=== PATIENT | male | born 1955 | race Caucasian/White ===

== ENCOUNTER 2018-02-13 05:46 | Observation (INO) | payer OTHER ==
[~2018-02-13] VITALS: Ht 160 cm; Wt 51.8 kg
[~2018-02-13 05:46] MED LIST: ALBU90OI INH; BEVESPI AEROS10.7 GM INH; BUDE.25 NEB; Brovana15 MCG/2 M INH; CARV6.25 PO; DIGOX250 MCG PO; FURO40 PO; Ipratropium Bro15 ML; LEVSOD75 PO; MECL12.5 PO; PYRI60 PO; SERT100 PO; WARF2 PO
[2018-02-13 06:34] LABS: BASOPHILS ABSOLUTE AUTO 0.06 K/mm3 (0.00-0.23); BASOPHILS PERCENT AUTO 1 % (0-2); EOSINOPHILS ABSOLUTE AUTO 0.18 K/mm3 (0.00-0.68); EOSINOPHILS PERCENT AUTO 2 % (0-6); Hematocrit 42.4 % (37.0-53.0); Hemoglobin 13.5 g/dL (13.5-17.5); IMMATURE GRAN ABSOLUTE AUTO 0.01 K/mm3 (0.00-0.10); IMMATURE GRAN PERCENT AUTO 0 % (0-1); LYMPHOCYTES ABSOLUTE AUTO 1.27 K/mm3 (0.84-5.20); LYMPHOCYTES PERCENT AUTO 17 % (21-46); MONOCYTES ABSOLUTE AUTO 0.59 K/mm3 (0.16-1.47); MONOCYTES PERCENT AUTO 8 % (4-13); Mean Corpuscular HGB 26.8 pg (26.0-34.0); Mean Corpuscular HGB Conc 31.8 g/dL (31.5-36.5); Mean Corpuscular Volume 84 fL (80-100); Mean Platelet Volume 9.4 fL (9.1-12.4); NEUTROPHILS ABSOLUTE AUTO 5.35 K/mm3 (1.96-9.15); NEUTROPHILS PERCENT AUTO 72 % (41-73); Platelet Count 226 K/mm3 (150-400); RDW Coefficient Variation 15.9 % (11.7-14.2); RDW Standard Deviation 48.9 fL (35.1-46.3); Red Blood Cell Count 5.03 M/mm3 (4.30-5.90); White Blood Cell Count 7.46 K/mm3 (4.00-11.30)
[2018-02-13 06:41] LABS: Bun/Creatinine Ratio 18.4 (12.0-20.0); Calcium, Blood 8.2 mg/dL (8.5-10.1); Creatinine, Blood 1.41 mg/dL (0.60-1.20); Potassium, Blood 4.2 mmol/L (3.5-5.5)
[2018-02-13 06:50] LABS: International Normalized Ratio 3.44
[2018-02-13 10:05] LABS: International Normalized Ratio 3.68; Prothrombin Time Results 35.2 Sec (9.7-11.5)
[2018-02-13 10:51] LABS: Digoxin (Lanoxin) 1.12 ug/mL (0.80-2.00)
[2018-02-14 03:47] LABS: Bun/Creatinine Ratio 19.1 (12.0-20.0); Calcium, Blood 8.1 mg/dL (8.5-10.1); Creatinine, Blood 1.41 mg/dL (0.60-1.20); Potassium, Blood 4.7 mmol/L (3.5-5.5)
[2018-02-14] MEDS ORDERED: FURO20 PO (09:09)
[2018-02-14] MEDS ORDERED: Prinivil10 MG PO (09:11)
[2018-02-14] MEDS ORDERED: SPIR25 PO (09:12)
[2018-02-14] MEDS ORDERED: METO25ER PO (09:13)
== END 2018-02-14 12:35 | disposition home or self-care (01) ==
LOC: MHTC 05:46 → PCU 08:33 → MHTC 08:43 → PCU 02-14 12:35
PROVIDERS: Internal Medicine Cardiovascular Disease
DX: I11.0 Hypertensive heart disease with heart failure (principal); I50.9 Heart failure, unspecified; I42.9 Cardiomyopathy, unspecified; Z95.2 Presence of prosthetic heart valve
CPT/HCPCS: 36415; 71046; 80048; 80162; 85025; 85610; 93005; 93010; 93306; 93458; 94640; 94760; 99152; 99153; C1769; C1894; G0378; J1644; J2250; J3010; J3490; J7030; J7605; Q9967

== ENCOUNTER 2022-06-06 15:36 | Inpatient (IN) | payer MEDICARE, OTHER ==
[~2022-06-06] VITALS: Ht 162.6 cm; Wt 55.0 kg
[~2022-06-06 15:36] MED LIST changes: +FURO20 PO; +METO25ER PO; +Prinivil10 MG PO; +SPIR25 PO
[2022-06-06 16:25] LABS: BASOPHILS ABSOLUTE AUTO 0.07 K/mm3 (0.00-0.23); BASOPHILS PERCENT AUTO 1 % (0-2); EOSINOPHILS ABSOLUTE AUTO 0.13 K/mm3 (0.00-0.68); EOSINOPHILS PERCENT AUTO 2 % (0-6); Hematocrit 45.9 % (37.0-53.0); Hemoglobin 14.6 g/dL (13.5-17.5); IMMATURE GRAN ABSOLUTE AUTO 0.02 K/mm3 (0.00-0.10); IMMATURE GRAN PERCENT AUTO 0 % (0-1); LYMPHOCYTES ABSOLUTE AUTO 1.65 K/mm3 (0.84-5.20); LYMPHOCYTES PERCENT AUTO 22 % (21-46); MONOCYTES ABSOLUTE AUTO 0.65 K/mm3 (0.16-1.47); MONOCYTES PERCENT AUTO 9 % (4-13); Mean Corpuscular HGB 26.2 pg (26.0-34.0); Mean Corpuscular HGB Conc 31.8 g/dL (31.5-36.5); Mean Corpuscular Volume 82 fL (80-100); NEUTROPHILS ABSOLUTE AUTO 5.08 K/mm3 (1.96-9.15); NEUTROPHILS PERCENT AUTO 67 % (41-73); Platelet Count 242 K/mm3 (150-400); RDW Coefficient Variation 16.2 % (11.7-14.2); RDW Standard Deviation 47.6 fL (35.1-46.3); Red Blood Cell Count 5.58 M/mm3 (4.30-5.90)
[2022-06-06 16:48] LABS: Albumin, Blood 3.7 g/dL (3.4-5.0); Albumin/Globulin Ratio 1.2 (0.8-1.8); Bilirubin, Total 0.8 mg/dL (0.1-1.0); Bun/Creatinine Ratio 16.8 (12.0-20.0); Calcium, Blood 8.9 mg/dL (8.5-10.1); Creatinine, Blood 1.13 mg/dL (0.60-1.20); Globulin, Blood 3.1 g/dL (2.2-4.0); Potassium, Blood 4.3 mmol/L (3.5-5.5); Total Protein, Blood 6.8 g/dL (6.4-8.2)
[2022-06-06] MEDS ORDERED: FURO40 PO (18:19)
[2022-06-06] MEDS ORDERED: ISOSORBIDE MONO30 MG PO (18:21)
[2022-06-06] MEDS ORDERED: JANTOVEN2.5 M2 PO (18:22)
[2022-06-06 18:44] LABS: International Normalized Ratio 1.76; Prothrombin Time Results 17.8 Sec (9.7-11.5)
[2022-06-06 23:42] LABS: CPK Creatine Kinase 108 U/L (39-308)
--- NOTE | 2022-06-07 05:08 | NUR ---
Patient admitted for CHF, elevated BNP/Troponin. chief complaint SOB. Patient has implanted defibrillator. Gave PM dose of Warfarin. Tele ordered, SR. rv service technician reported several occurences of Vtach, Patient had 23beat of Vtach at 0230, MD ordered Metoprolol Tartate given once gave at 0305, Tele called back and reported 18 beats of Vtach & again at 0345 23beats of Vtach. MD instructed RN to give 0900 Metoprlol Succinate now. Patient is resting comfortably, arouses easily to voice. Denies cardiac symptoms. MD instructed RN to continue to monitor & notfied MD if patient becomes symptomatic.
[2022-06-07 08:14] LABS: BASOPHILS ABSOLUTE AUTO 0.09 K/mm3 (0.00-0.23); BASOPHILS PERCENT AUTO 1 % (0-2); EOSINOPHILS ABSOLUTE AUTO 0.17 K/mm3 (0.00-0.68); EOSINOPHILS PERCENT AUTO 2 % (0-6); Hematocrit 49.3 % (37.0-53.0); Hemoglobin 15.5 g/dL (13.5-17.5); IMMATURE GRAN ABSOLUTE AUTO 0.02 K/mm3 (0.00-0.10); IMMATURE GRAN PERCENT AUTO 0 % (0-1); LYMPHOCYTES ABSOLUTE AUTO 1.99 K/mm3 (0.84-5.20); LYMPHOCYTES PERCENT AUTO 28 % (21-46); MONOCYTES ABSOLUTE AUTO 0.74 K/mm3 (0.16-1.47); MONOCYTES PERCENT AUTO 10 % (4-13); Mean Corpuscular HGB 25.8 pg (26.0-34.0); Mean Corpuscular HGB Conc 31.4 g/dL (31.5-36.5); Mean Corpuscular Volume 82 fL (80-100); Mean Platelet Volume 9.4 fL (9.1-12.4); NEUTROPHILS ABSOLUTE AUTO 4.19 K/mm3 (1.96-9.15); NEUTROPHILS PERCENT AUTO 58 % (41-73); Platelet Count 240 K/mm3 (150-400); RDW Coefficient Variation 16.8 % (11.7-14.2); RDW Standard Deviation 47.8 fL (35.1-46.3)
[2022-06-07 08:29] LABS: International Normalized Ratio 1.8; Prothrombin Time Results 18.2 Sec (9.7-11.5)
[2022-06-07 08:33] LABS: Albumin, Blood 3.4 g/dL (3.4-5.0); Albumin/Globulin Ratio 0.9 (0.8-1.8); Bilirubin, Total 0.8 mg/dL (0.1-1.0); Bun/Creatinine Ratio 17.6 (12.0-20.0); Calcium, Blood 8.5 mg/dL (8.5-10.1); Creatinine, Blood 1.36 mg/dL (0.60-1.20); Globulin, Blood 3.6 g/dL (2.2-4.0); Magnesium, Blood 2.1 mg/dL (1.6-2.4); Potassium, Blood 4.2 mmol/L (3.5-5.5)
[2022-06-07 08:38] LABS: CPK Creatine Kinase 87 U/L (39-308)
--- NOTE | 2022-06-07 16:08 | NUR ---
SHIFT SUMMARY PT SLEEPING AT START OF SHIFT. WOKE EASILY FOR CARE. NO C/O. SR ON TELE, PER MX TECH. PER NOC SHIFT REPORT, PT HAVING SHORT EPISODES OF V-TACH WITH DEFIBULATER SPIKING. PT ASYMPTOMATIC. AM DOSE OF METOPROLOL GIVEN BY NOC SHIFT, WHICH HELPED. ONLY SHORT, INTERMITTENT EPISODES DURING THE DAY NOTED BY TELE MX. PT REMAINED ASYMPTOMATIC. DR MILLER UPDATED ON EVENTS. LABS ORDERED TO CHK ELECTROLYTES. PT USING URINAL AT BS NEEDED. DENIED FURTHER NEEDS. SLEPT OFF AND ON TODAY, WATCHING TV AND TALKING ON PHONE OCCASSIONALLY. CALL LT IN REACH. WILL CONTINUE TO MONITOR.
--- NOTE | 2022-06-08 04:33 | NUR ---
Rn summary: Patient is alert and oriented. Patient is using urinal. Patient lung sounds are diminished throughout. Patient is on RA. He states he still gets some SOB with activity. Tele shows SR with BBB and occ PVC's. CONTROL CLERK SUBASSEMBLY gave pt a bed bath. Plan for Echo today. Call light in reach. Pt has had a good night.
[2022-06-08 05:58] LABS: BASOPHILS PERCENT AUTO 1 % (0-2); EOSINOPHILS ABSOLUTE AUTO 0.18 K/mm3 (0.00-0.68); EOSINOPHILS PERCENT AUTO 2 % (0-6); Hematocrit 49.3 % (37.0-53.0); Hemoglobin 15.8 g/dL (13.5-17.5); IMMATURE GRAN ABSOLUTE AUTO 0.02 K/mm3 (0.00-0.10); IMMATURE GRAN PERCENT AUTO 0 % (0-1); LYMPHOCYTES ABSOLUTE AUTO 2.32 K/mm3 (0.84-5.20); LYMPHOCYTES PERCENT AUTO 28 % (21-46); MONOCYTES ABSOLUTE AUTO 0.83 K/mm3 (0.16-1.47); MONOCYTES PERCENT AUTO 10 % (4-13); Mean Corpuscular HGB 25.9 pg (26.0-34.0); Mean Corpuscular Volume 81 fL (80-100); Mean Platelet Volume 9.5 fL (9.1-12.4); NEUTROPHILS ABSOLUTE AUTO 4.99 K/mm3 (1.96-9.15); NEUTROPHILS PERCENT AUTO 59 % (41-73); Platelet Count 255 K/mm3 (150-400); RDW Coefficient Variation 16.4 % (11.7-14.2); RDW Standard Deviation 46.7 fL (35.1-46.3); Red Blood Cell Count 6.09 M/mm3 (4.30-5.90); White Blood Cell Count 8.44 K/mm3 (4.00-11.30)
[2022-06-08 06:16] LABS: International Normalized Ratio 2.82; Prothrombin Time Results 27.7 Sec (9.7-11.5)
[2022-06-08 06:23] LABS: Bun/Creatinine Ratio 24.2 (12.0-20.0); Calcium, Blood 9.3 mg/dL (8.5-10.1); Creatinine, Blood 1.49 mg/dL (0.60-1.20); Magnesium, Blood 2.2 mg/dL (1.6-2.4); Potassium, Blood 3.8 mmol/L (3.5-5.5)
--- NOTE | 2022-06-08 16:56 | NUR ---
SHIFT SUMMARY- PT INDEPENDANT IN ROOM. APPETITE OK. PT ASLEEP MOST OF SHIFT. ON RA. IV PATENT. DAUGHTER CALLED TO DISCUSSED PLAN, GAVE DR NUMBER. PLEASANT RESTING WELL. NO C/O PAIN DURING SHIFT. CALL LIGHT IN REACH, SIDE RAILS UP FOR SAFETY.
[2022-06-09 02:01] LABS: Prothrombin Time Results 39.6 Sec (9.7-11.5)
[2022-06-09 02:12] LABS: International Normalized Ratio 4.14
--- NOTE | 2022-06-09 05:35 | NUR ---
SHIFT SUMMARY PT SLEPT MUCH OF THE NIGHT. CRITICAL APTT OF 121 AND INF OF 4.14. PHARMACY SPOKE WITH DR. DANIEL AND HEPARIN DRIP HELD THIS EVENING. PT HAS BEEN NPO SINCE MIDNIGHT FOR PROCEDURE TODAY. TELE SR IN THE 'S. PT DID HAVE 11 BEAT RUN OF VTACH. PT HAD A RUN PREVIOUSLY IN THE ER. PT WAS ASYMPTOMATIC. OTHERWISE NO ACUTE CHANGES THIS EVENING.
[2022-06-09 13:19] LABS: Bun/Creatinine Ratio 24.6 (12.0-20.0); Calcium, Blood 9.3 mg/dL (8.5-10.1); Creatinine, Blood 1.34 mg/dL (0.60-1.20)
[2022-06-09 13:36] LABS: Prothrombin Time Results 46.7 Sec (9.7-11.5)
[2022-06-09 13:38] LABS: International Normalized Ratio 4.94
--- NOTE | 2022-06-09 14:00 | NUR ---
Follow-up partial echo exam completed.
--- NOTE | 2022-06-09 16:44 | NUR ---
SHIFT SUMMARY PT A/O X4; PLEASANT AND COOPERATIVE WITH CARE. HEPARIN DRIP RESTARTED AND BEING MANAGED BY PHARMACY. EVIN STUDY DONE TODAY, WHICH PATIENT TOLERATED WELL. VSS.
--- NOTE | 2022-06-10 04:49 | NUR ---
SHIFT SUMMARY PT HAD AN UNEVENTFUL NIGHT. MOSTLY SLEPT. PT WAKE COMPLAINING OF BACK PAIN THIS AM. NEW ORDER FOR TYLENOL. PT ASLEEP AGAIN WHEN THIS RN WENT TO BRING PT THE TYLENOL. HEPARIN DRIP RUNNING. DOSE DECREASED TO 15 U/KG/HR. MANAGED BY PHARMACY. OTHERWISE NO ACUTE CHANGES THIS SHIFT. VITAL SIGNS STABLE.
[2022-06-10 06:11] LABS: Bun/Creatinine Ratio 35.8 (12.0-20.0); Calcium, Blood 9.4 mg/dL (8.5-10.1); Creatinine, Blood 1.06 mg/dL (0.60-1.20); Potassium, Blood 4.5 mmol/L (3.5-5.5)
[2022-06-10 06:18] LABS: Prothrombin Time Results 39.8 Sec (9.7-11.5)
[2022-06-10 06:27] LABS: International Normalized Ratio 4.16
--- NOTE | 2022-06-10 17:59 | NUR ---
SHIFT SUMMARY PT A/O X4; PLEASANT AND COOPERATIVE WITH CARE. THROMBUS FOUND AFTER EVIN YX AND PT CURRENTLY RECEIVING HEPARIN THERAPY. HEPARIN DRIP TITRATED DOWN THIS SHIFT. PT HAS NO COMPLAINTS OR CONCERNS AT THIS TIME. VSS.
--- NOTE | 2022-06-11 05:03 | NUR ---
SHIFT SUMMARY: Pt A/Ox4 and call light appropriate. No acute changes this shift. Pt rested well overnight and had no c/o. Hep gtt continues to infuse and is being managed by pharamcy. No calls from clerk television production overnight.
[2022-06-11 05:21] LABS: International Normalized Ratio 2.76; Prothrombin Time Results 27.1 Sec (9.7-11.5)
[2022-06-11 05:31] LABS: Bun/Creatinine Ratio 40.2 (12.0-20.0); Creatinine, Blood 1.07 mg/dL (0.60-1.20); Potassium, Blood 4.9 mmol/L (3.5-5.5)
[2022-06-11] MEDS ORDERED: LISI5 PO (18:37)
[2022-06-11] MEDS ORDERED: ASPI81CH PO (18:38)
[2022-06-11] MEDS ORDERED: Coumadin4 MG PO (18:38)
--- NOTE | 2022-06-11 20:29 | NUR ---
DISCHARGE DISCUSSED DISCHARGE INSTRUCTIONS WITH PT, DISCHARGE PAPERWORK SIGNED AND IS ON CHART. IV REMOVED. HEPARIN GTT STOPPED BY JOHN LIU IN PREPARATION FOR DISCHARGE, PHARMACY NOTIFIED. IV REMOVED. PT BELONGINGS IN PLACE AND DISCHARGE PACKET WITH PT. PT WHEELED OUT BY VACCINATOR. PT AND VITALS STABLE UPON DISCHARGE. PT DISCHARGED 2028.
== END 2022-06-11 20:29 | disposition home or self-care (01) | DRG 286 ==
LOC: ER 15:36 → MEDS 15:37
PROVIDERS: Emergency Medicine; Internal Medicine Cardiovascular Disease; Physician Assistant; Student in an Organized Health Care Education/Training Program; ADMIT Internal Medicine
PROC: B2161ZZ Fluoroscopy of Right and Left Heart using Low Osmolar Contrast (ICD-10-PCS; principal; 2022-06-09)
DX: T82.6XXA Infection and inflammatory reaction due to cardiac valve prosthesis, initial encounter (principal); I33.0 Acute and subacute infective endocarditis; I50.23 Acute on chronic systolic (congestive) heart failure; F17.200 Nicotine dependence, unspecified, uncomplicated; I11.0 Hypertensive heart disease with heart failure; Z95.1 Presence of aortocoronary bypass graft; Z95.810 Presence of automatic (implantable) cardiac defibrillator; Z95.4 Presence of other heart-valve replacement; Z88.0 Allergy status to penicillin; Z88.8 Allergy status to other drugs, medicaments and biological substances; Z91.018 Allergy to other foods; Z79.51 Long term (current) use of inhaled steroids; Z79.899 Other long term (current) drug therapy; E03.9 Hypothyroidism, unspecified; I25.10 Atherosclerotic heart disease of native coronary artery without angina pectoris; I25.2 Old myocardial infarction; Z88.6 Allergy status to analgesic agent; F17.210 Nicotine dependence, cigarettes, uncomplicated; I25.5 Ischemic cardiomyopathy; J43.9 Emphysema, unspecified
CPT/HCPCS: 36415; 71046; 80048; 80053; 82550; 83735; 83880; 84484; 85025; 85610; 85730; 87040; 93005; 93010; 93308; 93312; 93321; 93325; 94760; 96374; 99285-25; A9270; C8929; G0378; J1644; J1650; J1940; J2250; J2310; J3010; J7030; Q9957